=== PATIENT | female | born 1950 | race Caucasian/White ===

== ENCOUNTER 2020-05-29 03:09 | Observation (INO) ==
[2020-05-29] MEDS ORDERED: Morphine Sulfate 2 MG/ML SYRINGE IVP ONE ×3 (04:27→07:42)
[2020-05-29] MEDS ORDERED: Isovue-370 500 ML BOTTLE IVP ONE (04:31)
[2020-05-29 04:37] LABS: Bilirubin,Urine Negative (Negative); Blood,Urine Large (Negative); Calcium Oxalate Crystals,Urine Present; Clarity,Urine Clear (Clear); Color,Urine Light-Yellow (Yellow); Glucose,Urine (UA) Normal (Normal); Ketones,Urine Negative (Negative); Leukocyte Esterase,Urine Negative (Negative); Mucus,Urine Few per lpf (None-Few); Nitrite,Urine Negative (Negative); PH,Urine 6.5 pH Units (5.0-8.0); Protein,Urine Trace mg/dL (Neg-Trace); RBC,Urine 30-50 per hpf (0-3); Specific Gravity,Urine 1.024 (1.010-1.025); Squamous Epithelial Cell,Urine Few per hpf (None-Few); WBC,Urine 0-3 per hpf (0-3)
[2020-05-29 05:56] LABS: Basophils # 0.1 K/mcL (0.0-0.2); Basophils % 0.5 %; Eosinophils # 0.5 K/mcL (0.0-0.6); Eosinophils % 4.2 %; Hematocrit 38.5 % (35.3-44.9); Immature Granulocytes % 0.3 % (0-4); Lymphocytes # 1.5 K/mcL (0.6-4.6); Lymphocytes % 11.7 %; Mean Corpuscular HGB Conc 31.2 g/dL (31.6-35.5); Mean Corpuscular Hemoglobin 26.8 pg (28.0-33.3); Mean Corpuscular Volume 86.1 fL (83.0-100.0); Mean Platelet Volume 9.3 fL (9.4-12.4); Monocytes # 0.9 K/mcL (0.0-1.3); Monocytes % 6.9 %; Neutrophils # 9.7 K/mcL (1.6-8.9); Platelet Count 255 K/mcL (140-400); Red Blood Count 4.47 M/mcL (3.82-4.97); Red Cell Distribution Width 16.3 % (11.5-14.5); Segmented Neutrophils % 76.4 %; White Blood Count 12.7 K/mcL (4.3-11.1)
[2020-05-29 06:14] LABS: Alanine Aminotransferase 27 Units/L (7-52); Albumin 4.2 g/dL (3.5-5.7); Albumin/Globulin Ratio 1.5 (1.1-2.2); Alkaline Phosphatase 135 Units/L (34-104); Aspartate Amino Transferase 28 Units/L (13-39); BUN/Creatinine Ratio 19 (6-26); Bilirubin,Direct 0.1 mg/dL (0.0-0.2); Bilirubin,Indirect 0.3 mg/dL (0.0-1.0); Bilirubin,Total 0.4 mg/dL (0.3-1.0); Blood Urea Nitrogen 18 mg/dL (8-23); Carbon Dioxide 23 mEq/L (23-29); Chloride 109 mEq/L (98-107); Globulin 2.8 g/dL (2.4-3.5); Glucose 129 mg/dL (70-105); Lipase 26 Units/L (11-82); Osmolality,Calculated 296 (280-300); Potassium 4.2 mEq/L (3.5-5.1); Sodium 141 mEq/L (136-145); eGFR For African Americans > 60 (> 60); eGFR For Non-African Americans 58 (> 60)
[2020-05-29] MEDS ORDERED: Ondansetron 4 MG/2 ML VIAL IVP ONE ×2 (06:20→07:58)
[2020-05-29] MEDS ORDERED: Ondansetron 4 MG/2 ML VIAL IVP PRN (10:19)
[2020-05-29] MEDS ORDERED: Ketorolac 30 MG/ML VIAL IVP PRN (10:19)
[2020-05-29] MEDS ORDERED: Naloxone 0.4 MG/ML INJ IVP PRN (10:19)
[2020-05-29] MEDS ORDERED: Albuterol 2.5 MG/3 ML NEBULIZER IH PRN (10:48)
[2020-05-29] MEDS: 0.9 % Sodium Chloride 1,000 ML IVC SCH ×2 (13:50→22:21)
[2020-05-29] MEDS: *HR* Heparin 5,000 UNIT/ML VIAL SQ SCH (18:29)
[2020-05-29] MEDS: Verapamil ER (24 HR) 180 MG TABLET.ER PO SCH (22:21)
[2020-05-30] MEDS: *HR* Heparin 5,000 UNIT/ML VIAL SQ SCH (05:31)
[2020-05-30 07:06] LABS: Basophils % 0.6 %; Eosinophils # 0.5 K/mcL (0.0-0.6); Eosinophils % 7.8 %; Hematocrit 35.1 % (35.3-44.9); Hemoglobin 10.9 g/dL (11.5-15.4); Immature Granulocytes % 0.3 % (0-4); Lymphocytes # 1.7 K/mcL (0.6-4.6); Lymphocytes % 25.4 %; Mean Corpuscular HGB Conc 31.1 g/dL (31.6-35.5); Mean Corpuscular Hemoglobin 27.1 pg (28.0-33.3); Mean Corpuscular Volume 87.3 fL (83.0-100.0); Mean Platelet Volume 9.5 fL (9.4-12.4); Monocytes # 0.5 K/mcL (0.0-1.3); Monocytes % 7.6 %; Neutrophils # 3.8 K/mcL (1.6-8.9); Platelet Count 219 K/mcL (140-400); Red Blood Count 4.02 M/mcL (3.82-4.97); Red Cell Distribution Width 16.5 % (11.5-14.5); Segmented Neutrophils % 58.3 %; White Blood Count 6.5 K/mcL (4.3-11.1)
[2020-05-30] MEDS: Verapamil ER (24 HR) 180 MG TABLET.ER PO SCH (07:25)
[2020-05-30 07:30] LABS: BUN/Creatinine Ratio 17 (6-26); Blood Urea Nitrogen 11 mg/dL (8-23); Calcium 8.4 mg/dL (8.6-10.3); Carbon Dioxide 23 mEq/L (23-29); Chloride 109 mEq/L (98-107); Glucose 97 mg/dL (70-105); Osmolality,Calculated 289 (280-300); Sodium 140 mEq/L (136-145); eGFR For African Americans > 60 (> 60); eGFR For Non-African Americans > 60 (> 60)
[2020-05-30] MEDS ORDERED: Acetaminophen IV 1,000 MG/100 ML BAG IVPB ONE (08:20)
[2020-05-30] MEDS ORDERED: Budesonide/Formoterol 160/4.5 1 PUFF INH IH SCH (10:00)
[2020-05-30] MEDS ORDERED: *HR* Promethazine 25 MG/ML VIAL IVP PRN (10:02)
[2020-05-30] MEDS ORDERED: *HR* Midazolam HCl 2 MG/2 ML VIAL ONE (14:54)
[2020-05-30] MEDS ORDERED: *HR* Propofol 200 MG/20 ML VIAL IVP ONE (14:54)
[2020-05-30] MEDS ORDERED: *HR* FentaNYL (PF) 100 MCG/2 ML VIAL ONE (14:54)
[2020-05-30] MEDS ORDERED: Lidocaine -MPF 2% 2 ML VIAL ONE (14:56)
[2020-05-30] MEDS ORDERED: Dexamethasone 4 MG/ML VIAL ONE (14:56)
[2020-05-30] MEDS ORDERED: Ondansetron 4 MG/2 ML VIAL ONE (14:56)
[2020-05-30] MEDS ORDERED: Famotidine 20 MG/2 ML VIAL ONE (15:32)
[2020-05-30 17:58] VITALS: BP 152/83
== END 2020-05-30 19:10 | disposition home or self-care (01) ==
LOC: 3ANU 03:09 → EMEROOARM 03:09 → SUATTDRO 09:19 → 3ANU 09:43
PROVIDERS: ADMIT Family Medicine; ATTEND Internal Medicine
PROC: UROLITH (2020-05-30 15:25)